=== PATIENT | male | born 1935 | race African-American/Black ===

== ENCOUNTER 2020-08-11 17:10 | Inpatient (IN) | payer OTHER ==
[2020-08-11] MEDS ORDERED: LACTATED RINGERS SOLUTION 1000 ML INFUS.BAG IV ONE (18:00)
[2020-08-11] MEDS ORDERED: ACETAMINOPHEN 1000 MG/100 ML VIAL (NON FORMULARY) IVPB ONE (18:00)
[2020-08-11] MEDS ORDERED: ACETAMINOPHEN INJECTION 100 ML IVPB ONE (18:14)
[2020-08-11 18:29] LABS: BASO % 0.4 % (0-2.0); HEMATOCRIT 35.9 % (35.4-49); HEMOGLOBIN 12.4 GM/dL (11.7-16.9); LYMPH % 29.4 % (8-40); MCH 36.4 pg (25.7-33.7); MCHC 34.5 g/dl (32.0-35.9); MEAN CELL VOLUME 105.3 fl (80-96); MEAN PLT VOLUME 9.9 fl (7.5-11.1); MONO % 9.6 % (3.8-10.2); NEUT % 60.6 % (42.8-82.8); PLATELET COUNT 133 K/MM3 (134-434); RBC 3.41 M/mm3 (4.00-5.60); RDW 12.6 % (11.9-15.9); WHITE BLOOD COUNT 5.1 K/mm3 (4.0-10.0)
[2020-08-11 18:37] LABS: INR 1.14 (0.83-1.09); PROTHROMBIN TIME (PATIENT) 13.7 SEC (9.7-13.0)
[2020-08-11 18:40] LABS: ACTIVATED PTT 29.8 SECONDS (25.2-36.5)
[2020-08-11 18:47] LABS: CHLORIDE 107 mmol/L (98-107); POTASSIUM 4.4 mmol/L (3.5-5.1); SODIUM 139 mmol/L (136-145)
[2020-08-11 18:49] LABS: CALCIUM 8.7 mg/dL (8.5-10.1)
[2020-08-11 18:50] LABS: ALBUMIN 3.8 g/dl (3.4-5.0); ANION GAP 7 MMOL/L (8-16); BLOOD UREA NITROGEN 31.1 mg/dL (7-18); CO2 25 mmol/L (21-32); GLUCOSE,RANDOM 115 mg/dL (74-106)
[2020-08-11 18:52] LABS: BILIRUBIN,DIRECT 0.2 mg/dL (0.0-0.2); SGPT/ALT 26 U/L (13-61)
[2020-08-11 18:53] LABS: SGOT/AST 35 U/L (15-37)
[2020-08-11 18:54] LABS: BILIRUBIN,TOTAL 0.6 mg/dL (0.2-1); TOT PROT 6.8 g/dl (6.4-8.2)
[2020-08-11 18:55] LABS: ALK PHOS 72 U/L (45-117)
[2020-08-11 18:56] LABS: LDH 192 U/L (87-246)
[2020-08-11 19:04] LABS: ANISOCYTOSIS 0; MACROCYTOSIS 0; PLATELET ESTIMATE DECREASED
[2020-08-11] MEDS ORDERED: CEFTRIAXONE 1,000 MG in DEXTROSE 5%-WATER - 50 ML IVPB ONE (20:25)
[2020-08-11] MEDS ORDERED: AZITHROMYCIN IVPB 500 MG in DEXTROSE 5%-WATER - 250 ML IVPB ONE (20:25)
[2020-08-11] MEDS ORDERED: CEFTRIAXONE 1 GM/50 ML BAG ONE (21:17)
[2020-08-11] MEDS ORDERED: AZITHROMYCIN IVPB 500 MG/250 ML BAG IVPB ONE (21:18)
[2020-08-12] MEDS ORDERED: AZITHROMYCIN IVPB 500 MG in DEXTROSE 5%-WATER - 250 ML IVPB ONE (00:54)
[2020-08-12] MEDS: DEXTROSE 5%-0.45% SALINE 1,000 ML IV SCH ×2 (03:15→18:00)
[2020-08-12 04:05] LABS: EPI CELLS 6 /uL (0-25.1); HYALINE CASTS 4 /uL (0-3.1); URINE APPEARANCE CLEAR; URINE BACTERIA 5 /uL (0-1359); URINE BILIRUBIN NEGATIVE (NEGATIVE); URINE COLOR DK YELLOW; URINE GLUCOSE (UA) NEGATIVE (NEGATIVE); URINE KETONE TRACE (NEGATIVE); URINE LEUK ESTERASE NEGATIVE (NEGATIVE); URINE NITRITE NEGATIVE (NEGATIVE); URINE PROTEIN 1+ (NEGATIVE); URINE RBC 17 /uL (0-23.9); URINE UROBILINOGEN 0.2 mg/dL (0.2-1.0); URINE WBC 7 /uL (0-25.8)
[2020-08-12] MEDS ORDERED: PT OWN MED DRAWER 7, Y5N ONE (10:05)
[2020-08-12] MEDS: DEXAMETHASONE SOD PHOSPHATE 4 MG/1 ML VIAL IVPUSH SCH (10:10)
[2020-08-12] MEDS: ASCORBIC ACID 500 MG TABLET (FP) PO SCH ×2 (10:11→22:02)
[2020-08-12] MEDS: LIPASE/PROTEASE/AMYLASE 6,000 UNIT CAPSULE PO SCH ×2 (10:11→22:01)
[2020-08-12] MEDS: ZINC SULFATE 220 MG CAPSULE (FP) PO SCH ×2 (10:11→22:02)
[2020-08-12] MEDS: ISOSORBIDE MONONITRATE 30 MG TAB.SR.24H (FP) PO SCH (10:11)
[2020-08-12] MEDS: CLOPIDOGREL BISULFATE 75 MG TABLET (FP) PO SCH (10:11)
[2020-08-12] MEDS: FOLIC ACID 1 MG TABLET (FP) PO SCH (10:11)
[2020-08-12] MEDS: CHOLECALCIFEROL (VIT D3) 1,000 UNIT (25 MCG) TABLET PO SCH (10:11)
[2020-08-12] MEDS: PANTOPRAZOLE 40 MG TABLET PO SCH (10:11)
[2020-08-12 14:16] LABS: BASO % 0.4 % (0-2.0); HEMATOCRIT 33.2 % (35.4-49); HEMOGLOBIN 11.6 GM/dL (11.7-16.9); LYMPH % 14.8 % (8-40); MCH 36.1 pg (25.7-33.7); MCHC 34.9 g/dl (32.0-35.9); MEAN CELL VOLUME 103.6 fl (80-96); MEAN PLT VOLUME 10.3 fl (7.5-11.1); MONO % 4.9 % (3.8-10.2); NEUT % 79.9 % (42.8-82.8); PLATELET COUNT 122 K/MM3 (134-434); RDW 12.9 % (11.9-15.9)
[2020-08-12] MEDS: ENOXAPARIN NA (PORCINE) 30 MG/0.3 ML DISP.SYRIN SQ SCH (14:34)
[2020-08-12] MEDS: ACETAMINOPHEN 325 MG TABLET (FP) PO PRN (14:34)
[2020-08-12 14:41] LABS: CHLORIDE 107 mmol/L (98-107); POTASSIUM 4.5 mmol/L (3.5-5.1); SODIUM 138 mmol/L (136-145)
[2020-08-12 14:43] LABS: ALBUMIN 3.4 g/dl (3.4-5.0); CALCIUM 8.4 mg/dL (8.5-10.1)
[2020-08-12 14:44] LABS: ANION GAP 10 MMOL/L (8-16); BLOOD UREA NITROGEN 26.1 mg/dL (7-18); CO2 21 mmol/L (21-32); GLUCOSE,RANDOM 142 mg/dL (74-106)
[2020-08-12 14:47] LABS: CREATININE 2.3 mg/dL (0.55-1.3); SGOT/AST 40 U/L (15-37); SGPT/ALT 28 U/L (13-61)
[2020-08-12 14:48] LABS: BILIRUBIN,TOTAL 0.6 mg/dL (0.2-1); TOT PROT 6.2 g/dl (6.4-8.2)
[2020-08-12 14:49] LABS: ALK PHOS 64 U/L (45-117)
[2020-08-12] MEDS: DONEPEZIL HCL 10 MG TABLET (FP) PO SCH (22:01)
[2020-08-12] MEDS: ATORVASTATIN CA 10 MG TABLET (FP) PO SCH (22:02)
[2020-08-12] MEDS: CITALOPRAM HYDROBROMIDE 10 MG TABLET PO SCH (22:02)
[2020-08-13 09:33] LABS: BASO % 0.2 % (0-2.0); HEMATOCRIT 31.9 % (35.4-49); HEMOGLOBIN 11.2 GM/dL (11.7-16.9); LYMPH % 14.1 % (8-40); MCH 36.3 pg (25.7-33.7); MCHC 35.2 g/dl (32.0-35.9); MEAN CELL VOLUME 103.1 fl (80-96); MEAN PLT VOLUME 10.3 fl (7.5-11.1); MONO % 6.7 % (3.8-10.2); PLATELET COUNT 131 K/MM3 (134-434); RBC 3.09 M/mm3 (4.00-5.60); RDW 12.3 % (11.9-15.9); WHITE BLOOD COUNT 8.1 K/mm3 (4.0-10.0)
[2020-08-13 09:59] LABS: POTASSIUM 4.2 mmol/L (3.5-5.1)
[2020-08-13] MEDS ORDERED: AZITHROMYCIN IVPB 250 MG in DEXTROSE 5%-WATER - 250 ML IVPB SCH (10:00)
[2020-08-13 10:16] LABS: ALBUMIN 3.4 g/dl (3.4-5.0)
[2020-08-13 10:17] LABS: BILIRUBIN,TOTAL 0.6 mg/dL (0.2-1)
[2020-08-13 10:19] LABS: BLOOD UREA NITROGEN 25.5 mg/dL (7-18); CALCIUM 8.3 mg/dL (8.5-10.1)
[2020-08-13] MEDS: DEXTROSE 5%-0.45% SALINE 1,000 ML IV SCH (10:20)
[2020-08-13 10:21] LABS: TOT PROT 6.4 g/dl (6.4-8.2)
[2020-08-13] MEDS: DEXAMETHASONE SOD PHOSPHATE 4 MG/1 ML VIAL IVPUSH SCH (10:21)
[2020-08-13] MEDS: LIPASE/PROTEASE/AMYLASE 6,000 UNIT CAPSULE PO SCH ×2 (10:21→22:21)
[2020-08-13] MEDS: FOLIC ACID 1 MG TABLET (FP) PO SCH (10:22)
[2020-08-13] MEDS: ENOXAPARIN NA (PORCINE) 30 MG/0.3 ML DISP.SYRIN SQ SCH (10:22)
[2020-08-13] MEDS: CHOLECALCIFEROL (VIT D3) 1,000 UNIT (25 MCG) TABLET PO SCH (10:22)
[2020-08-13] MEDS: ASCORBIC ACID 500 MG TABLET (FP) PO SCH ×2 (10:22→21:55)
[2020-08-13] MEDS: ZINC SULFATE 220 MG CAPSULE (FP) PO SCH ×2 (10:22→21:55)
[2020-08-13] MEDS: ISOSORBIDE MONONITRATE 30 MG TAB.SR.24H (FP) PO SCH (10:22)
[2020-08-13] MEDS: PANTOPRAZOLE 40 MG TABLET PO SCH (10:22)
[2020-08-13] MEDS: CLOPIDOGREL BISULFATE 75 MG TABLET (FP) PO SCH (10:22)
[2020-08-13] MEDS ORDERED: cefTRIAXone SODIUM 1 GM VIAL ONE (14:48)
[2020-08-13] MEDS ORDERED: DEXTROSE 5%-WATER - 50 ML IVPB ONE (14:49)
[2020-08-13] MEDS: CEFTRIAXONE 1 GM in DEXTROSE 5%-WATER - 50 ML IVPB SCH (14:50)
[2020-08-13] MEDS: ACETAMINOPHEN 325 MG TABLET (FP) PO PRN (14:50)
[2020-08-13 16:51] LABS: EPI CELLS 4 /uL (0-25.1); HYALINE CASTS 0 /uL (0-3.1); URINE APPEARANCE CLEAR; URINE BACTERIA 90 /uL (0-1359); URINE BILIRUBIN NEGATIVE (NEGATIVE); URINE COLOR YELLOW; URINE GLUCOSE (UA) NEGATIVE (NEGATIVE); URINE KETONE NEGATIVE (NEGATIVE); URINE LEUK ESTERASE NEGATIVE (NEGATIVE); URINE NITRITE NEGATIVE (NEGATIVE); URINE PROTEIN 1+ (NEGATIVE); URINE RBC 22 /uL (0-23.9); URINE WBC 4 /uL (0-25.8)
[2020-08-13] MEDS: LACTATED RINGERS SOLUTION 1,000 ML/1,000 ML INFUS.BAG IV SCH (17:48)
[2020-08-13] MEDS ORDERED: PT OWN MED DRAWER 7, Y5N ONE (21:39)
[2020-08-13] MEDS: DONEPEZIL HCL 10 MG TABLET (FP) PO SCH (21:55)
[2020-08-13] MEDS: ATORVASTATIN CA 10 MG TABLET (FP) PO SCH (21:55)
[2020-08-13] MEDS: CITALOPRAM HYDROBROMIDE 10 MG TABLET PO SCH (21:55)
[2020-08-14 09:27] LABS: BASO % 0.1 % (0-2.0); HEMOGLOBIN 11.7 GM/dL (11.7-16.9); LYMPH % 6.8 % (8-40); MCH 35.7 pg (25.7-33.7); MCHC 34.4 g/dl (32.0-35.9); MEAN CELL VOLUME 103.8 fl (80-96); MEAN PLT VOLUME 10.5 fl (7.5-11.1); MONO % 3.8 % (3.8-10.2); NEUT % 89.3 % (42.8-82.8); PLATELET COUNT 147 K/MM3 (134-434); RBC 3.28 M/mm3 (4.00-5.60); RDW 12.4 % (11.9-15.9); WHITE BLOOD COUNT 12.6 K/mm3 (4.0-10.0)
[2020-08-14] MEDS: LIPASE/PROTEASE/AMYLASE 6,000 UNIT CAPSULE PO SCH ×2 (09:30→18:11)
[2020-08-14 09:50] LABS: POTASSIUM 4.3 mmol/L (3.5-5.1)
[2020-08-14 09:55] LABS: POTASSIUM 4.2 mmol/L (3.5-5.1)
[2020-08-14] MEDS ORDERED: cefTRIAXone SODIUM 1 GM VIAL ONE (10:32)
[2020-08-14 10:33] LABS: CALCIUM 8.5 mg/dL (8.5-10.1)
[2020-08-14] MEDS ORDERED: DEXTROSE 5%-WATER - 50 ML IVPB ONE (10:33)
[2020-08-14 10:34] LABS: ALBUMIN 3.3 g/dl (3.4-5.0); BLOOD UREA NITROGEN 22.7 mg/dL (7-18)
[2020-08-14 10:37] LABS: CREATININE 1.8 mg/dL (0.55-1.3)
[2020-08-14 10:39] LABS: BILIRUBIN,TOTAL 0.6 mg/dL (0.2-1); TOT PROT 6.4 g/dl (6.4-8.2)
[2020-08-14 10:46] LABS: BLOOD UREA NITROGEN 24.7 mg/dL (7-18); CALCIUM 8.8 mg/dL (8.5-10.1)
[2020-08-14 10:50] LABS: CREATININE 1.7 mg/dL (0.55-1.3)
[2020-08-14] MEDS: DEXAMETHASONE SOD PHOSPHATE 4 MG/1 ML VIAL IVPUSH SCH (11:11)
[2020-08-14] MEDS: ENOXAPARIN NA (PORCINE) 30 MG/0.3 ML DISP.SYRIN SQ SCH (11:12)
[2020-08-14] MEDS: PANTOPRAZOLE 40 MG TABLET PO SCH (11:12)
[2020-08-14] MEDS: CLOPIDOGREL BISULFATE 75 MG TABLET (FP) PO SCH (11:12)
[2020-08-14] MEDS: CHOLECALCIFEROL (VIT D3) 1,000 UNIT (25 MCG) TABLET PO SCH (11:12)
[2020-08-14] MEDS: ZINC SULFATE 220 MG CAPSULE (FP) PO SCH ×2 (11:12→22:15)
[2020-08-14] MEDS: ISOSORBIDE MONONITRATE 30 MG TAB.SR.24H (FP) PO SCH (11:12)
[2020-08-14] MEDS: ASCORBIC ACID 500 MG TABLET (FP) PO SCH ×2 (11:12→22:15)
[2020-08-14] MEDS: FOLIC ACID 1 MG TABLET (FP) PO SCH (11:12)
[2020-08-14] MEDS: LACTATED RINGERS SOLUTION 1,000 ML/1,000 ML INFUS.BAG IV SCH ×2 (11:13→15:00)
[2020-08-14] MEDS: CEFTRIAXONE 1 GM in DEXTROSE 5%-WATER - 50 ML IVPB SCH (11:13)
[2020-08-14] MEDS ORDERED: REMDESIVIR 200 MG in SODIUM CHLORIDE 210 ML IVPB ONE (15:30)
[2020-08-14] MEDS: ATORVASTATIN CA 10 MG TABLET (FP) PO SCH (22:15)
[2020-08-14] MEDS: DONEPEZIL HCL 10 MG TABLET (FP) PO SCH (22:15)
[2020-08-14] MEDS: CITALOPRAM HYDROBROMIDE 10 MG TABLET PO SCH (22:15)
[2020-08-15] MEDS: LIPASE/PROTEASE/AMYLASE 6,000 UNIT CAPSULE PO SCH ×2 (09:15→19:36)
[2020-08-15 10:01] LABS: BASO % 0.3 % (0-2.0); HEMATOCRIT 32.2 % (35.4-49); HEMOGLOBIN 11.1 GM/dL (11.7-16.9); LYMPH % 8.3 % (8-40); MCHC 34.6 g/dl (32.0-35.9); MEAN CELL VOLUME 103.9 fl (80-96); MEAN PLT VOLUME 11.1 fl (7.5-11.1); MONO % 5.6 % (3.8-10.2); NEUT % 85.8 % (42.8-82.8); PLATELET COUNT 138 K/MM3 (134-434); RDW 12.5 % (11.9-15.9); WHITE BLOOD COUNT 10.8 K/mm3 (4.0-10.0)
[2020-08-15] MEDS ORDERED: cefTRIAXone SODIUM 1 GM VIAL ONE (10:11)
[2020-08-15] MEDS ORDERED: DEXTROSE 5%-WATER - 50 ML IVPB ONE (10:11)
[2020-08-15] MEDS: CLOPIDOGREL BISULFATE 75 MG TABLET (FP) PO SCH (10:40)
[2020-08-15] MEDS: ZINC SULFATE 220 MG CAPSULE (FP) PO SCH ×2 (10:40→22:02)
[2020-08-15] MEDS: CEFTRIAXONE 1 GM in DEXTROSE 5%-WATER - 50 ML IVPB SCH (10:41)
[2020-08-15] MEDS: CHOLECALCIFEROL (VIT D3) 1,000 UNIT (25 MCG) TABLET PO SCH (10:41)
[2020-08-15] MEDS: ISOSORBIDE MONONITRATE 30 MG TAB.SR.24H (FP) PO SCH (10:41)
[2020-08-15] MEDS: ASCORBIC ACID 500 MG TABLET (FP) PO SCH ×2 (10:41→22:02)
[2020-08-15] MEDS: DEXAMETHASONE SOD PHOSPHATE 4 MG/1 ML VIAL IVPUSH SCH (10:41)
[2020-08-15] MEDS: FOLIC ACID 1 MG TABLET (FP) PO SCH (10:41)
[2020-08-15] MEDS: PANTOPRAZOLE 40 MG TABLET PO SCH (10:41)
[2020-08-15] MEDS: ENOXAPARIN NA (PORCINE) 30 MG/0.3 ML DISP.SYRIN SQ SCH (10:45)
[2020-08-15] MEDS: LACTATED RINGERS SOLUTION 1,000 ML/1,000 ML INFUS.BAG IV SCH ×2 (10:47→14:53)
[2020-08-15 10:58] LABS: BLOOD UREA NITROGEN 25.3 mg/dL (7-18); CALCIUM 8.5 mg/dL (8.5-10.1)
[2020-08-15 11:01] LABS: CREATININE 1.6 mg/dL (0.55-1.3)
[2020-08-15 11:03] LABS: BILIRUBIN,TOTAL 0.8 mg/dL (0.2-1); TOT PROT 5.9 g/dl (6.4-8.2)
[2020-08-15 11:07] LABS: POTASSIUM 4.7 mmol/L (3.5-5.1)
[2020-08-15] MEDS: REMDESIVIR 100 MG in SODIUM CHLORIDE 230 ML IVPB SCH (14:52)
[2020-08-15] MEDS: CITALOPRAM HYDROBROMIDE 10 MG TABLET PO SCH (22:01)
[2020-08-15] MEDS: ATORVASTATIN CA 10 MG TABLET (FP) PO SCH (22:01)
[2020-08-15] MEDS: DONEPEZIL HCL 10 MG TABLET (FP) PO SCH (22:02)
[2020-08-16 09:06] LABS: BASO % 0.2 % (0-2.0); HEMATOCRIT 32.2 % (35.4-49); HEMOGLOBIN 11.4 GM/dL (11.7-16.9); LYMPH % 9.2 % (8-40); MCH 36.2 pg (25.7-33.7); MCHC 35.3 g/dl (32.0-35.9); MEAN CELL VOLUME 102.3 fl (80-96); MEAN PLT VOLUME 9.8 fl (7.5-11.1); MONO % 7.3 % (3.8-10.2); NEUT % 83.3 % (42.8-82.8); PLATELET COUNT 174 K/MM3 (134-434); RBC 3.15 M/mm3 (4.00-5.60); RDW 12.5 % (11.9-15.9); WHITE BLOOD COUNT 10.9 K/mm3 (4.0-10.0)
[2020-08-16 09:30] LABS: POTASSIUM 4.1 mmol/L (3.5-5.1)
[2020-08-16 10:05] LABS: BLOOD UREA NITROGEN 28.1 mg/dL (7-18)
[2020-08-16 10:07] LABS: CALCIUM 8.7 mg/dL (8.5-10.1)
[2020-08-16 10:11] LABS: CREATININE 1.6 mg/dL (0.55-1.3)
[2020-08-16 10:12] LABS: BILIRUBIN,TOTAL 0.7 mg/dL (0.2-1)
[2020-08-16 10:13] LABS: TOT PROT 5.8 g/dl (6.4-8.2)
[2020-08-16] MEDS ORDERED: DEXTROSE 5%-WATER - 50 ML IVPB ONE (10:13)
[2020-08-16] MEDS ORDERED: PT OWN MED DRAWER 7, Y5N ONE (10:13)
[2020-08-16] MEDS ORDERED: cefTRIAXone SODIUM 1 GM VIAL ONE (10:13)
[2020-08-16] MEDS: LIPASE/PROTEASE/AMYLASE 6,000 UNIT CAPSULE PO SCH ×2 (10:23→19:13)
[2020-08-16] MEDS: ZINC SULFATE 220 MG CAPSULE (FP) PO SCH ×2 (10:24→22:14)
[2020-08-16] MEDS: CHOLECALCIFEROL (VIT D3) 1,000 UNIT (25 MCG) TABLET PO SCH (10:24)
[2020-08-16] MEDS: DEXAMETHASONE SOD PHOSPHATE 4 MG/1 ML VIAL IVPUSH SCH (10:24)
[2020-08-16] MEDS: ASCORBIC ACID 500 MG TABLET (FP) PO SCH ×2 (10:24→22:14)
[2020-08-16] MEDS: ENOXAPARIN NA (PORCINE) 30 MG/0.3 ML DISP.SYRIN SQ SCH (10:26)
[2020-08-16] MEDS: CEFTRIAXONE 1 GM in DEXTROSE 5%-WATER - 50 ML IVPB SCH (10:26)
[2020-08-16] MEDS: PANTOPRAZOLE 40 MG TABLET PO SCH (10:27)
[2020-08-16] MEDS: REMDESIVIR 100 MG in SODIUM CHLORIDE 230 ML IVPB SCH (10:27)
[2020-08-16] MEDS: ISOSORBIDE MONONITRATE 30 MG TAB.SR.24H (FP) PO SCH (10:27)
[2020-08-16] MEDS: FOLIC ACID 1 MG TABLET (FP) PO SCH (10:27)
[2020-08-16] MEDS: CLOPIDOGREL BISULFATE 75 MG TABLET (FP) PO SCH (10:27)
[2020-08-16] MEDS: LACTATED RINGERS SOLUTION 1,000 ML/1,000 ML INFUS.BAG IV SCH ×2 (10:32→19:13)
[2020-08-16 12:07] LABS: ANISOCYTOSIS 1+; MACROCYTOSIS 0; PLATELET ESTIMATE NORMAL
[2020-08-16] MEDS: CITALOPRAM HYDROBROMIDE 10 MG TABLET PO SCH (22:13)
[2020-08-16] MEDS: ENOXAPARIN NA (PORCINE) 80 MG/0.8 ML DISP.SYRIN SQ SCH (22:14)
[2020-08-16] MEDS: DONEPEZIL HCL 10 MG TABLET (FP) PO SCH (22:14)
[2020-08-16] MEDS: ATORVASTATIN CA 10 MG TABLET (FP) PO SCH (22:14)
[2020-08-17] MEDS ORDERED: PT OWN MED DRAWER 7, Y5N ONE ×2 (09:03→17:23)
[2020-08-17] MEDS: ENOXAPARIN NA (PORCINE) 80 MG/0.8 ML DISP.SYRIN SQ SCH ×2 (09:09→21:44)
[2020-08-17 10:11] LABS: BASO % 0.3 % (0-2.0); EOS % 0.3 % (0-4.5); HEMATOCRIT 29.6 % (35.4-49); HEMOGLOBIN 10.4 GM/dL (11.7-16.9); LYMPH % 9.4 % (8-40); MCH 36.3 pg (25.7-33.7); MCHC 35.1 g/dl (32.0-35.9); MEAN CELL VOLUME 103.3 fl (80-96); MEAN PLT VOLUME 10.1 fl (7.5-11.1); MONO % 11.6 % (3.8-10.2); NEUT % 78.4 % (42.8-82.8); PLATELET COUNT 186 K/MM3 (134-434); RBC 2.87 M/mm3 (4.00-5.60); RDW 12.2 % (11.9-15.9); WHITE BLOOD COUNT 9.8 K/mm3 (4.0-10.0)
[2020-08-17] MEDS ORDERED: cefTRIAXone SODIUM 1 GM VIAL ONE (10:13)
[2020-08-17] MEDS ORDERED: DEXTROSE 5%-WATER - 50 ML IVPB ONE (10:13)
[2020-08-17 10:37] LABS: POTASSIUM 4.3 mmol/L (3.5-5.1)
[2020-08-17 10:41] LABS: ALBUMIN 2.8 g/dl (3.4-5.0); CALCIUM 8.5 mg/dL (8.5-10.1)
[2020-08-17 10:42] LABS: BLOOD UREA NITROGEN 27.9 mg/dL (7-18)
[2020-08-17 10:45] LABS: CREATININE 1.6 mg/dL (0.55-1.3)
[2020-08-17 10:46] LABS: BILIRUBIN,TOTAL 1.3 mg/dL (0.2-1); TOT PROT 5.7 g/dl (6.4-8.2)
[2020-08-17] MEDS: LIPASE/PROTEASE/AMYLASE 6,000 UNIT CAPSULE PO SCH ×2 (11:17→17:24)
[2020-08-17] MEDS: CHOLECALCIFEROL (VIT D3) 1,000 UNIT (25 MCG) TABLET PO SCH (11:18)
[2020-08-17] MEDS: ISOSORBIDE MONONITRATE 30 MG TAB.SR.24H (FP) PO SCH (11:18)
[2020-08-17] MEDS: ZINC SULFATE 220 MG CAPSULE (FP) PO SCH ×2 (11:19→21:43)
[2020-08-17] MEDS: PANTOPRAZOLE 40 MG TABLET PO SCH (11:19)
[2020-08-17] MEDS: DEXAMETHASONE SOD PHOSPHATE 4 MG/1 ML VIAL IVPUSH SCH (11:19)
[2020-08-17] MEDS: FOLIC ACID 1 MG TABLET (FP) PO SCH (11:19)
[2020-08-17] MEDS: ASCORBIC ACID 500 MG TABLET (FP) PO SCH ×2 (11:19→21:43)
[2020-08-17] MEDS: CLOPIDOGREL BISULFATE 75 MG TABLET (FP) PO SCH (11:19)
[2020-08-17] MEDS: CEFTRIAXONE 1 GM in DEXTROSE 5%-WATER - 50 ML IVPB SCH (11:20)
[2020-08-17 11:45] LABS: ANISOCYTOSIS 0; MACROCYTOSIS 1+; PLATELET ESTIMATE NORMAL
[2020-08-17] MEDS: REMDESIVIR 100 MG in SODIUM CHLORIDE 230 ML IVPB SCH (14:12)
[2020-08-17] MEDS: POLYETHYLENE GLYCOL 3350 119 GM BTL PO SCH (14:12)
[2020-08-17] MEDS: DOCUSATE SODIUM 100 MG CAPSULE (FP) PO SCH ×2 (14:15→21:44)
[2020-08-17] MEDS: LACTATED RINGERS SOLUTION 1,000 ML/1,000 ML INFUS.BAG IV SCH (14:25)
[2020-08-17] MEDS: DONEPEZIL HCL 10 MG TABLET (FP) PO SCH (21:43)
[2020-08-17] MEDS: ATORVASTATIN CA 10 MG TABLET (FP) PO SCH (21:43)
[2020-08-17] MEDS: CITALOPRAM HYDROBROMIDE 10 MG TABLET PO SCH (21:43)
[2020-08-17] MEDS ORDERED: SODIUM CHLORIDE 250 ML IV ONE (22:45)
[2020-08-18] MEDS: DOCUSATE SODIUM 100 MG CAPSULE (FP) PO SCH ×3 (06:27→22:13)
[2020-08-18] MEDS: LIPASE/PROTEASE/AMYLASE 6,000 UNIT CAPSULE PO SCH ×2 (09:30→18:01)
[2020-08-18] MEDS: ENOXAPARIN NA (PORCINE) 80 MG/0.8 ML DISP.SYRIN SQ SCH ×2 (10:53→22:13)
[2020-08-18] MEDS: PANTOPRAZOLE 40 MG TABLET PO SCH (10:53)
[2020-08-18] MEDS: DEXAMETHASONE SOD PHOSPHATE 4 MG/1 ML VIAL IVPUSH SCH (10:53)
[2020-08-18] MEDS: ZINC SULFATE 220 MG CAPSULE (FP) PO SCH ×2 (10:54→22:13)
[2020-08-18] MEDS: FOLIC ACID 1 MG TABLET (FP) PO SCH (10:54)
[2020-08-18] MEDS: CLOPIDOGREL BISULFATE 75 MG TABLET (FP) PO SCH (10:54)
[2020-08-18] MEDS: ASCORBIC ACID 500 MG TABLET (FP) PO SCH ×2 (10:54→22:13)
[2020-08-18] MEDS: ISOSORBIDE MONONITRATE 30 MG TAB.SR.24H (FP) PO SCH (10:54)
[2020-08-18] MEDS: CHOLECALCIFEROL (VIT D3) 1,000 UNIT (25 MCG) TABLET PO SCH (10:54)
[2020-08-18] MEDS: POLYETHYLENE GLYCOL 3350 119 GM BTL PO SCH (10:55)
[2020-08-18] MEDS: REMDESIVIR 100 MG in SODIUM CHLORIDE 230 ML IVPB SCH (10:56)
[2020-08-18 12:44] LABS: EOS % 0.8 % (0-4.5); HEMATOCRIT 29.3 % (35.4-49); HEMOGLOBIN 10.3 GM/dL (11.7-16.9); LYMPH % 12.5 % (8-40); MCH 36.4 pg (25.7-33.7); MCHC 35.1 g/dl (32.0-35.9); MEAN CELL VOLUME 103.8 fl (80-96); MEAN PLT VOLUME 10.1 fl (7.5-11.1); MONO % 12.2 % (3.8-10.2); NEUT % 73.5 % (42.8-82.8); PLATELET COUNT 206 K/MM3 (134-434); RBC 2.82 M/mm3 (4.00-5.60); RDW 12.5 % (11.9-15.9)
[2020-08-18 13:08] LABS: ALBUMIN 2.6 g/dl (3.4-5.0); CALCIUM 7.9 mg/dL (8.5-10.1)
[2020-08-18 13:12] LABS: CREATININE 1.6 mg/dL (0.55-1.3)
[2020-08-18 13:13] LABS: BILIRUBIN,TOTAL 0.7 mg/dL (0.2-1); TOT PROT 5.5 g/dl (6.4-8.2)
[2020-08-18 15:10] LABS: ANISOCYTOSIS 0; MACROCYTOSIS 1+; PLATELET ESTIMATE NORMAL
[2020-08-18] MEDS: CITALOPRAM HYDROBROMIDE 10 MG TABLET PO SCH (22:13)
[2020-08-18] MEDS: ATORVASTATIN CA 10 MG TABLET (FP) PO SCH (22:13)
[2020-08-18] MEDS: DONEPEZIL HCL 10 MG TABLET (FP) PO SCH (22:13)
[2020-08-19] MEDS: DOCUSATE SODIUM 100 MG CAPSULE (FP) PO SCH ×3 (06:28→22:33)
[2020-08-19] MEDS: LIPASE/PROTEASE/AMYLASE 6,000 UNIT CAPSULE PO SCH ×2 (09:28→17:31)
[2020-08-19] MEDS: ASCORBIC ACID 500 MG TABLET (FP) PO SCH ×2 (09:45→22:33)
[2020-08-19] MEDS: PANTOPRAZOLE 40 MG TABLET PO SCH (09:45)
[2020-08-19] MEDS: ISOSORBIDE MONONITRATE 30 MG TAB.SR.24H (FP) PO SCH (09:45)
[2020-08-19] MEDS: CLOPIDOGREL BISULFATE 75 MG TABLET (FP) PO SCH (09:46)
[2020-08-19] MEDS: ZINC SULFATE 220 MG CAPSULE (FP) PO SCH ×2 (09:46→22:33)
[2020-08-19] MEDS: DEXAMETHASONE SOD PHOSPHATE 4 MG/1 ML VIAL IVPUSH SCH (09:46)
[2020-08-19] MEDS: FOLIC ACID 1 MG TABLET (FP) PO SCH (09:46)
[2020-08-19] MEDS: CHOLECALCIFEROL (VIT D3) 1,000 UNIT (25 MCG) TABLET PO SCH (09:47)
[2020-08-19] MEDS: POLYETHYLENE GLYCOL 3350 119 GM BTL PO SCH (09:47)
[2020-08-19] MEDS: ENOXAPARIN NA (PORCINE) 80 MG/0.8 ML DISP.SYRIN SQ SCH ×2 (09:47→22:33)
[2020-08-19 11:27] LABS: BASO % 0.6 % (0-2.0); HEMATOCRIT 31.3 % (35.4-49); HEMOGLOBIN 11.1 GM/dL (11.7-16.9); MCH 36.9 pg (25.7-33.7); MCHC 35.5 g/dl (32.0-35.9); MEAN CELL VOLUME 104.1 fl (80-96); MEAN PLT VOLUME 9.8 fl (7.5-11.1); MONO % 7.1 % (3.8-10.2); NEUT % 80.3 % (42.8-82.8); PLATELET COUNT 265 K/MM3 (134-434); RBC 3.01 M/mm3 (4.00-5.60); RDW 12.5 % (11.9-15.9); WHITE BLOOD COUNT 10.5 K/mm3 (4.0-10.0)
[2020-08-19 11:43] LABS: POTASSIUM 3.9 mmol/L (3.5-5.1)
[2020-08-19 11:46] LABS: CALCIUM 8.5 mg/dL (8.5-10.1)
[2020-08-19 11:47] LABS: ALBUMIN 2.9 g/dl (3.4-5.0); BLOOD UREA NITROGEN 28.1 mg/dL (7-18)
[2020-08-19 11:50] LABS: CREATININE 1.6 mg/dL (0.55-1.3)
[2020-08-19 11:52] LABS: BILIRUBIN,TOTAL 1.1 mg/dL (0.2-1); TOT PROT 6.1 g/dl (6.4-8.2)
[2020-08-19 12:02] LABS: ANISOCYTOSIS 1+; MACROCYTOSIS 1+; PLATELET ESTIMATE NORMAL
[2020-08-19] MEDS: DONEPEZIL HCL 10 MG TABLET (FP) PO SCH (22:33)
[2020-08-19] MEDS: ATORVASTATIN CA 10 MG TABLET (FP) PO SCH (22:33)
[2020-08-19] MEDS: CITALOPRAM HYDROBROMIDE 10 MG TABLET PO SCH (22:33)
[2020-08-20] MEDS: DOCUSATE SODIUM 100 MG CAPSULE (FP) PO SCH ×3 (06:11→21:01)
[2020-08-20] MEDS: LIPASE/PROTEASE/AMYLASE 6,000 UNIT CAPSULE PO SCH ×2 (09:30→17:50)
[2020-08-20] MEDS: DEXAMETHASONE SOD PHOSPHATE 4 MG/1 ML VIAL IVPUSH SCH (09:44)
[2020-08-20] MEDS: ISOSORBIDE MONONITRATE 30 MG TAB.SR.24H (FP) PO SCH (09:44)
[2020-08-20] MEDS: PANTOPRAZOLE 40 MG TABLET PO SCH (09:44)
[2020-08-20] MEDS: CLOPIDOGREL BISULFATE 75 MG TABLET (FP) PO SCH (09:44)
[2020-08-20] MEDS: ZINC SULFATE 220 MG CAPSULE (FP) PO SCH ×2 (09:44→21:01)
[2020-08-20] MEDS: ASCORBIC ACID 500 MG TABLET (FP) PO SCH ×2 (09:44→21:01)
[2020-08-20] MEDS: FOLIC ACID 1 MG TABLET (FP) PO SCH (09:44)
[2020-08-20] MEDS: ENOXAPARIN NA (PORCINE) 80 MG/0.8 ML DISP.SYRIN SQ SCH ×2 (09:45→21:01)
[2020-08-20] MEDS: POLYETHYLENE GLYCOL 3350 119 GM BTL PO SCH (09:46)
[2020-08-20] MEDS: CHOLECALCIFEROL (VIT D3) 1,000 UNIT (25 MCG) TABLET PO SCH (09:46)
[2020-08-20] MEDS ORDERED: PT OWN MED DRAWER 7, Y5N ONE (16:56)
[2020-08-20] MEDS: DONEPEZIL HCL 10 MG TABLET (FP) PO SCH (21:01)
[2020-08-20] MEDS: CITALOPRAM HYDROBROMIDE 10 MG TABLET PO SCH (21:01)
[2020-08-20] MEDS: ATORVASTATIN CA 10 MG TABLET (FP) PO SCH (21:01)
[2020-08-21] MEDS: DOCUSATE SODIUM 100 MG CAPSULE (FP) PO SCH ×3 (06:47→22:31)
[2020-08-21 08:54] LABS: BASO % 0.5 % (0-2.0); EOS % 2.8 % (0-4.5); HEMATOCRIT 29.2 % (35.4-49); HEMOGLOBIN 10.6 GM/dL (11.7-16.9); LYMPH % 11.2 % (8-40); MCHC 36.2 g/dl (32.0-35.9); MEAN CELL VOLUME 105.2 fl (80-96); MEAN PLT VOLUME 9.6 fl (7.5-11.1); MONO % 4.8 % (3.8-10.2); NEUT % 80.7 % (42.8-82.8); PLATELET COUNT 276 K/MM3 (134-434); RBC 2.78 M/mm3 (4.00-5.60); WHITE BLOOD COUNT 10.5 K/mm3 (4.0-10.0)
[2020-08-21 09:15] LABS: POTASSIUM 3.9 mmol/L (3.5-5.1)
[2020-08-21 09:22] LABS: CALCIUM 8.7 mg/dL (8.5-10.1)
[2020-08-21 09:23] LABS: ALBUMIN 2.9 g/dl (3.4-5.0); CREATININE 1.6 mg/dL (0.55-1.3)
[2020-08-21 09:24] LABS: BILIRUBIN,TOTAL 0.7 mg/dL (0.2-1)
[2020-08-21] MEDS: LIPASE/PROTEASE/AMYLASE 6,000 UNIT CAPSULE PO SCH ×2 (09:45→17:53)
[2020-08-21] MEDS: PANTOPRAZOLE 40 MG TABLET PO SCH (09:46)
[2020-08-21] MEDS: ZINC SULFATE 220 MG CAPSULE (FP) PO SCH ×2 (09:46→22:31)
[2020-08-21] MEDS: ASCORBIC ACID 500 MG TABLET (FP) PO SCH ×2 (09:46→22:31)
[2020-08-21] MEDS: DEXAMETHASONE SOD PHOSPHATE 4 MG/1 ML VIAL IVPUSH SCH (09:46)
[2020-08-21] MEDS: FOLIC ACID 1 MG TABLET (FP) PO SCH (09:46)
[2020-08-21] MEDS: CLOPIDOGREL BISULFATE 75 MG TABLET (FP) PO SCH (09:46)
[2020-08-21] MEDS: CHOLECALCIFEROL (VIT D3) 1,000 UNIT (25 MCG) TABLET PO SCH (09:47)
[2020-08-21] MEDS: ISOSORBIDE MONONITRATE 30 MG TAB.SR.24H (FP) PO SCH (09:47)
[2020-08-21] MEDS: ENOXAPARIN NA (PORCINE) 80 MG/0.8 ML DISP.SYRIN SQ SCH ×2 (09:47→22:30)
[2020-08-21 12:33] LABS: ANISOCYTOSIS 1+; MACROCYTOSIS 1+; OVALOCYTE 1+; PLATELET ESTIMATE NORMAL
[2020-08-21] MEDS: POLYETHYLENE GLYCOL 3350 119 GM BTL PO SCH (15:05)
[2020-08-21 17:19] VITALS: BMI 34.3
[2020-08-21] MEDS: DEXAMETHASONE 4 MG TABLET (FP) PO SCH (22:16)
[2020-08-21] MEDS: DONEPEZIL HCL 10 MG TABLET (FP) PO SCH (22:31)
[2020-08-21] MEDS: ATORVASTATIN CA 10 MG TABLET (FP) PO SCH (22:31)
[2020-08-21] MEDS: CITALOPRAM HYDROBROMIDE 10 MG TABLET PO SCH (22:31)
[2020-08-22] MEDS: DOCUSATE SODIUM 100 MG CAPSULE (FP) PO SCH ×3 (05:29→21:39)
[2020-08-22] MEDS: CLOPIDOGREL BISULFATE 75 MG TABLET (FP) PO SCH (10:37)
[2020-08-22] MEDS: ASCORBIC ACID 500 MG TABLET (FP) PO SCH ×2 (10:38→21:39)
[2020-08-22] MEDS: PANTOPRAZOLE 40 MG TABLET PO SCH (10:38)
[2020-08-22] MEDS: POLYETHYLENE GLYCOL 3350 119 GM BTL PO SCH (10:38)
[2020-08-22] MEDS: ISOSORBIDE MONONITRATE 30 MG TAB.SR.24H (FP) PO SCH (10:38)
[2020-08-22] MEDS: FOLIC ACID 1 MG TABLET (FP) PO SCH (10:38)
[2020-08-22] MEDS: DEXAMETHASONE 4 MG TABLET (FP) PO SCH ×2 (10:38→21:39)
[2020-08-22] MEDS: ZINC SULFATE 220 MG CAPSULE (FP) PO SCH ×2 (10:38→21:38)
[2020-08-22] MEDS: ENOXAPARIN NA (PORCINE) 80 MG/0.8 ML DISP.SYRIN SQ SCH ×2 (10:39→21:39)
[2020-08-22] MEDS: CHOLECALCIFEROL (VIT D3) 1,000 UNIT (25 MCG) TABLET PO SCH (10:40)
[2020-08-22] MEDS ORDERED: PT OWN MED DRAWER 7, Y5N ONE (10:42)
[2020-08-22] MEDS: LIPASE/PROTEASE/AMYLASE 6,000 UNIT CAPSULE PO SCH ×2 (10:43→18:41)
[2020-08-22] MEDS: CITALOPRAM HYDROBROMIDE 10 MG TABLET PO SCH (21:39)
[2020-08-22] MEDS: DONEPEZIL HCL 10 MG TABLET (FP) PO SCH (21:39)
[2020-08-22] MEDS: ATORVASTATIN CA 10 MG TABLET (FP) PO SCH (21:39)
[2020-08-23] MEDS: DOCUSATE SODIUM 100 MG CAPSULE (FP) PO SCH ×3 (05:11→22:12)
[2020-08-23 09:34] LABS: BASO % 0.3 % (0-2.0); EOS % 1.1 % (0-4.5); HEMATOCRIT 29.9 % (35.4-49); HEMOGLOBIN 10.7 GM/dL (11.7-16.9); LYMPH % 10.5 % (8-40); MCH 37.9 pg (25.7-33.7); MCHC 35.9 g/dl (32.0-35.9); MEAN CELL VOLUME 105.5 fl (80-96); MEAN PLT VOLUME 9.5 fl (7.5-11.1); MONO % 4.2 % (3.8-10.2); NEUT % 83.9 % (42.8-82.8); PLATELET COUNT 269 K/MM3 (134-434); RBC 2.83 M/mm3 (4.00-5.60); RDW 12.9 % (11.9-15.9); WHITE BLOOD COUNT 9.9 K/mm3 (4.0-10.0)
[2020-08-23 09:51] LABS: POTASSIUM 4.2 mmol/L (3.5-5.1)
[2020-08-23] MEDS: ENOXAPARIN NA (PORCINE) 80 MG/0.8 ML DISP.SYRIN SQ SCH (09:59)
[2020-08-23] MEDS: LIPASE/PROTEASE/AMYLASE 6,000 UNIT CAPSULE PO SCH ×2 (10:00→17:49)
[2020-08-23] MEDS: ZINC SULFATE 220 MG CAPSULE (FP) PO SCH ×2 (10:01→22:12)
[2020-08-23] MEDS: PANTOPRAZOLE 40 MG TABLET PO SCH (10:01)
[2020-08-23] MEDS: ISOSORBIDE MONONITRATE 30 MG TAB.SR.24H (FP) PO SCH (10:02)
[2020-08-23] MEDS: FOLIC ACID 1 MG TABLET (FP) PO SCH (10:02)
[2020-08-23] MEDS: CLOPIDOGREL BISULFATE 75 MG TABLET (FP) PO SCH (10:02)
[2020-08-23] MEDS: ASCORBIC ACID 500 MG TABLET (FP) PO SCH ×2 (10:02→22:12)
[2020-08-23] MEDS: CHOLECALCIFEROL (VIT D3) 1,000 UNIT (25 MCG) TABLET PO SCH (10:02)
[2020-08-23] MEDS: DEXAMETHASONE 4 MG TABLET (FP) PO SCH ×2 (10:02→22:12)
[2020-08-23] MEDS: POLYETHYLENE GLYCOL 3350 119 GM BTL PO SCH (10:03)
[2020-08-23 10:39] LABS: ANISOCYTOSIS 0; MACROCYTOSIS 2+; OVALOCYTE 1+; PLATELET ESTIMATE NORMAL; TARGET CELLS 2+
[2020-08-23 10:41] LABS: ALBUMIN 2.9 g/dl (3.4-5.0); CALCIUM 8.5 mg/dL (8.5-10.1)
[2020-08-23 10:42] LABS: BLOOD UREA NITROGEN 29.8 mg/dL (7-18)
[2020-08-23 10:44] LABS: BILIRUBIN,TOTAL 0.6 mg/dL (0.2-1)
[2020-08-23 10:45] LABS: CREATININE 1.4 mg/dL (0.55-1.3)
[2020-08-23] MEDS: DONEPEZIL HCL 10 MG TABLET (FP) PO SCH (22:12)
[2020-08-23] MEDS: ATORVASTATIN CA 10 MG TABLET (FP) PO SCH (22:12)
[2020-08-23] MEDS: CITALOPRAM HYDROBROMIDE 10 MG TABLET PO SCH (22:12)
[2020-08-24 05:29] VITALS: BP 138/74
[2020-08-24] MEDS: DOCUSATE SODIUM 100 MG CAPSULE (FP) PO SCH ×2 (05:52→15:07)
[2020-08-24 08:56] LABS: BASO % 0.5 % (0-2.0); EOS % 0.9 % (0-4.5); HEMOGLOBIN 10.2 GM/dL (11.7-16.9); LYMPH % 8.8 % (8-40); MCH 36.8 pg (25.7-33.7); MCHC 35.2 g/dl (32.0-35.9); MEAN CELL VOLUME 104.6 fl (80-96); MEAN PLT VOLUME 9.4 fl (7.5-11.1); MONO % 4.5 % (3.8-10.2); NEUT % 85.3 % (42.8-82.8); PLATELET COUNT 257 K/MM3 (134-434); RBC 2.77 M/mm3 (4.00-5.60)
[2020-08-24 09:11] LABS: ALBUMIN 2.7 g/dl (3.4-5.0); BLOOD UREA NITROGEN 29.6 mg/dL (7-18)
[2020-08-24 09:14] LABS: CREATININE 1.5 mg/dL (0.55-1.3)
[2020-08-24] MEDS ORDERED: PT OWN MED DRAWER 7, Y5N ONE ×2 (09:14→10:30)
[2020-08-24 09:15] LABS: BILIRUBIN,TOTAL 0.6 mg/dL (0.2-1); TOT PROT 5.8 g/dl (6.4-8.2)
[2020-08-24] MEDS: ASCORBIC ACID 500 MG TABLET (FP) PO SCH (09:41)
[2020-08-24] MEDS: ZINC SULFATE 220 MG CAPSULE (FP) PO SCH (09:41)
[2020-08-24] MEDS: CLOPIDOGREL BISULFATE 75 MG TABLET (FP) PO SCH (09:41)
[2020-08-24] MEDS: FOLIC ACID 1 MG TABLET (FP) PO SCH (09:41)
[2020-08-24] MEDS: DEXAMETHASONE 4 MG TABLET (FP) PO SCH (09:41)
[2020-08-24] MEDS: ISOSORBIDE MONONITRATE 30 MG TAB.SR.24H (FP) PO SCH (09:41)
[2020-08-24] MEDS: PANTOPRAZOLE 40 MG TABLET PO SCH (09:41)
[2020-08-24] MEDS: CHOLECALCIFEROL (VIT D3) 1,000 UNIT (25 MCG) TABLET PO SCH (09:42)
[2020-08-24] MEDS ORDERED: ENOXAPARIN NA (PORCINE) 40 MG/0.4 ML DISP.SYRIN SQ SCH (10:00)
[2020-08-24 10:38] LABS: ANISOCYTOSIS 0; MACROCYTOSIS 1+; PLATELET ESTIMATE NORMAL
[2020-08-24] MEDS: POLYETHYLENE GLYCOL 3350 119 GM BTL PO SCH (10:52)
[2020-08-24] MEDS: LIPASE/PROTEASE/AMYLASE 6,000 UNIT CAPSULE PO SCH (10:53)
[2020-08-24 13:43] VITALS: PULSE 58; TEMP 98
== END 2020-08-24 15:38 | DRG 177 ==
LOC: JER 17:10 → JERBED 22:11 → J5WEST-2 08-12 01:25 → J5S 08-12 05:35
PROVIDERS: ADMIT Internal Medicine; ATTEND Internal Medicine
PROC: XW13325 Transfusion of Convalescent Plasma (Nonautologous) into Peripheral Vein, Percutaneous Approach, New Technology Group 5 (ICD-10-PCS; 2020-08-12)
PROC: XW033E5 Introduction of Remdesivir Anti-infective into Peripheral Vein, Percutaneous Approach, New Technology Group 5 (ICD-10-PCS; principal; 2020-08-14)
DX: U07.1 COVID-19 (principal); J12.82 Pneumonia due to coronavirus disease 2019; N17.9 Acute kidney failure, unspecified; E78.5 Hyperlipidemia, unspecified; K21.9 Gastro-esophageal reflux disease without esophagitis; I25.10 Atherosclerotic heart disease of native coronary artery without angina pectoris; M10.9 Gout, unspecified; G31.84 Mild cognitive impairment of uncertain or unknown etiology; N28.1 Cyst of kidney, acquired; S70.02XA Contusion of left hip, initial encounter; W18.30XA Fall on same level, unspecified, initial encounter; D64.9 Anemia, unspecified; E86.0 Dehydration; D69.6 Thrombocytopenia, unspecified; F32.9 Major depressive disorder, single episode, unspecified; I12.9 Hypertensive chronic kidney disease with stage 1 through stage 4 chronic kidney disease, or unspecified chronic kidney disease; N18.9 Chronic kidney disease, unspecified; Z85.46 Personal history of malignant neoplasm of prostate; Z95.5 Presence of coronary angioplasty implant and graft; Y92.098 Other place in other non-institutional residence as the place of occurrence of the external cause
CPT/HCPCS: 36415; 36430; 70450-TC; 71045-TC-FY; 71250-TC; 72125-TC; 72128-TC; 72131-TC; 72170-TC-FY; 74176-TC; 76775-TC; 80048; 80053; 81003; 82248; 82550; 82553; 82728; 82962; 83605; 83615; 84484; 85025; 85379; 85610; 85730; 86140; 86850; 86900; 86901; 87040; 87086; 87804; 93005; 93010; 97116-GP; 97162-GP; 99285-25; C9399; C9803; J0131; P9017; U0003

== ENCOUNTER 2020-08-27 21:56 | Inpatient (IN) | payer OTHER ==
[2020-08-27] MEDS ORDERED: SODIUM CHLORIDE 1,000 ML IV SCH (22:45)
[2020-08-27 23:04] VITALS: BMI 30.7
[2020-08-27 23:05] LABS: BASO % 1.5 % (0-2.0); EOS % 0.1 % (0-4.5); HEMATOCRIT 33.1 % (35.4-49); HEMOGLOBIN 11.2 GM/dL (11.7-16.9); LYMPH % 9.2 % (8-40); MCH 35.5 pg (25.7-33.7); MCHC 33.9 g/dl (32.0-35.9); MEAN CELL VOLUME 104.8 fl (80-96); MEAN PLT VOLUME 9.4 fl (7.5-11.1); MONO % 6.4 % (3.8-10.2); NEUT % 82.8 % (42.8-82.8); PLATELET COUNT 238 K/MM3 (134-434); RBC 3.16 M/mm3 (4.00-5.60); RDW 13.3 % (11.9-15.9); WHITE BLOOD COUNT 9.8 K/mm3 (4.0-10.0)
[2020-08-27 23:12] LABS: INR 1.18 (0.83-1.09); PROTHROMBIN TIME (PATIENT) 14.5 SEC (9.7-13.0)
[2020-08-27 23:15] LABS: ACTIVATED PTT 27.7 SECONDS (25.2-36.5)
[2020-08-27 23:22] LABS: CHLORIDE 111 mmol/L (98-107); POTASSIUM 5.2 mmol/L (3.5-5.1); SODIUM 143 mmol/L (136-145)
[2020-08-27 23:24] LABS: ALBUMIN 3.3 g/dl (3.4-5.0); CALCIUM 9.3 mg/dL (8.5-10.1)
[2020-08-27 23:25] LABS: ANION GAP 8 MMOL/L (8-16); BLOOD UREA NITROGEN 40.6 mg/dL (7-18); CO2 24 mmol/L (21-32); GLUCOSE,RANDOM 142 mg/dL (74-106)
[2020-08-27 23:29] LABS: BILIRUBIN,TOTAL 0.5 mg/dL (0.2-1); CHOLESTEROL 134 mg/dL (50-200); SGOT/AST 24 U/L (15-37); SGPT/ALT 117 U/L (13-61); TOT PROT 6.9 g/dl (6.4-8.2)
[2020-08-27 23:30] LABS: ALK PHOS 74 U/L (45-117); TRIGLYCERIDES 118 mg/dL (0-150)
[2020-08-27 23:31] LABS: LDL CHOLESTEROL (ONLY SJRH) 73 mg/dL (5-100)
[2020-08-27 23:32] LABS: HDL CHOLESTEROL 38 mg/dL (40-60)
[2020-08-28] MEDS ORDERED: PROPOFOL 1,000,000 MCG/100 ML VIAL IVPB SCH (03:15)
[2020-08-28] MEDS ORDERED: SODIUM CHLORIDE 1,000 ML IV SCH (03:28)
[2020-08-28 06:11] LABS: EPI CELLS 5 /uL (0-25.1); HYALINE CASTS 1 /uL (0-3.1); PH,URINE 5.5 (5.0-8.0); URINE APPEARANCE CLEAR; URINE BACTERIA 42 /uL (0-1359); URINE BILIRUBIN NEGATIVE (NEGATIVE); URINE COLOR YELLOW; URINE GLUCOSE (UA) NEGATIVE (NEGATIVE); URINE KETONE NEGATIVE (NEGATIVE); URINE LEUK ESTERASE NEGATIVE (NEGATIVE); URINE NITRITE NEGATIVE (NEGATIVE); URINE PROTEIN TRACE (NEGATIVE); URINE RBC 31 /uL (0-23.9); URINE UROBILINOGEN 0.2 mg/dL (0.2-1.0); URINE WBC 9 /uL (0-25.8)
[2020-08-28 08:04] LABS: HEMATOCRIT 33.8 % (35.4-49); HEMOGLOBIN 11.8 GM/dL (11.7-16.9); MCH 37.2 pg (25.7-33.7); MCHC 34.9 g/dl (32.0-35.9); MEAN CELL VOLUME 106.8 fl (80-96); MEAN PLT VOLUME 9.6 fl (7.5-11.1); PLATELET COUNT 226 K/MM3 (134-434); RBC 3.16 M/mm3 (4.00-5.60); RDW 13.5 % (11.9-15.9)
[2020-08-28 08:21] LABS: POTASSIUM 4.7 mmol/L (3.5-5.1)
[2020-08-28 08:24] LABS: CALCIUM 9.2 mg/dL (8.5-10.1)
[2020-08-28 08:26] LABS: BLOOD UREA NITROGEN 40.9 mg/dL (7-18)
[2020-08-28 08:28] LABS: CREATININE 1.8 mg/dL (0.55-1.3)
[2020-08-28] MEDS ORDERED: ASPIRIN 81 MG CHEWABLE TABLETS PO SCH (10:00)
[2020-08-28] MEDS ORDERED: CLOPIDOGREL BISULFATE 75 MG TABLET (FP) PO SCH (10:00)
[2020-08-28] MEDS: METOPROLOL TARTRATE 25 MG TABLET (FP) PO SCH (10:48)
[2020-08-28] MEDS ORDERED: LACTATED RINGERS SOLUTION 1,000 ML/1,000 ML INFUS.BAG IV SCH (11:00)
[2020-08-28] MEDS ORDERED: ATORVASTATIN CA 10 MG TABLET (FP) PO SCH (22:00)
[2020-08-28] MEDS ORDERED: DONEPEZIL HCL 10 MG TABLET (FP) PO SCH (22:00)
[2020-08-29] MEDS: METOPROLOL TARTRATE 25 MG TABLET (FP) PO SCH (01:28)
[2020-08-29] MEDS ORDERED: SODIUM CHLORIDE 1,000 ML IV SCH (05:00)
[2020-08-29 07:31] VITALS: BP 141/86; PULSE 78; TEMP 98.9
== END 2020-08-29 07:40 | disposition short-term general hospital (02) | DRG 65 ==
LOC: JER 21:56 → JERBED 08-28 00:05
PROVIDERS: ADMIT Hospitalist; ATTEND Family Medicine
DX: I63.9 Cerebral infarction, unspecified (principal); I69.354 Hemiplegia and hemiparesis following cerebral infarction affecting left non-dominant side; N17.9 Acute kidney failure, unspecified; R29.718 NIHSS score 18; E78.5 Hyperlipidemia, unspecified; K21.9 Gastro-esophageal reflux disease without esophagitis; G30.9 Alzheimer's disease, unspecified; E86.0 Dehydration; I12.9 Hypertensive chronic kidney disease with stage 1 through stage 4 chronic kidney disease, or unspecified chronic kidney disease; N18.9 Chronic kidney disease, unspecified; I25.10 Atherosclerotic heart disease of native coronary artery without angina pectoris; M10.9 Gout, unspecified; R41.82 Altered mental status, unspecified; F02.80 Dementia in other diseases classified elsewhere, unspecified severity, without behavioral disturbance, psychotic disturbance, mood disturbance, and anxiety; D64.9 Anemia, unspecified; I71.2 Thoracic aortic aneurysm, without rupture; Z95.5 Presence of coronary angioplasty implant and graft; Z86.16 Personal history of COVID-19
CPT/HCPCS: 36415; 70450-TC; 71045-TC-FY; 80048; 80053; 80061; 81003; 82136; 82550; 83721; 83918; 84484; 85025; 85027; 85610; 85730; 86850; 86900; 86901; 93005; 93010; 93880-TC; 99285-25; C9803; U0003